=== PATIENT | male | born 1965 | race Caucasian/White ===

== ENCOUNTER 2020-04-07 08:45 | Inpatient (IN) | payer MEDICAID ==
[~2020-04-07] VITALS: Ht 193 cm; Wt 99.8 kg
[2020-04-07 09:40] LABS: BASOPHILS % 0.9 % (0.0-2.0); EOSINOPHILS % 1.6 % (0.0-5.0); HEMATOCRIT. 45.8 % (42.0-52.0); HEMOGLOBIN. 15.5 g/dL (14.0-18.0); LYMPHOCYTES % 33.7 % (20.0-50.0); MEAN CORPUSCULAR HEMOGLOBIN 32.3 pg (28.0-32.0); MEAN CORPUSCULAR VOLUME 95.2 fL (80.0-94.0); MEAN PLATELET VOLUME 7.8 fl (7.4-10.4); MONOCYTES % 8.4 % (2.0-8.0); NEUTROPHILS % 55.4 % (40.0-76.0); PLATELET 230 x1000/uL (130-400); RED BLOOD CELL COUNT 4.81 mill/uL (4.7-6.1); RED CELL DISTRIBUTION WIDTH 12.6 % (11.6-14.6)
[2020-04-07 09:45] LABS: CHLORIDE 107 mEq/L (98-107)
[2020-04-07] MEDS ORDERED: VANCOMYCIN HCL 1 GM/VIAL ONE (12:15)
[2020-04-07] MEDS ORDERED: BACITRACIN 50,000 UNITS/VIAL ONE (12:15)
[2020-04-07] MEDS ORDERED: BUPIVACAINE HCL/PF 0.25% (2.5MG/ML) 10ML ONE (12:15)
[2020-04-07] MEDS ORDERED: SODIUM CHLORIDE 0.9% INJ 10ML FLUSH IVF ONE (12:16)
[2020-04-07] MEDS ORDERED: MIDAZOLAM HCL 2 MG/2 ML VIAL ONE (15:30)
[2020-04-07] MEDS ORDERED: FENTANYL CITRATE/PF 50MCG/ML 2ML VIAL ONE (15:30)
[2020-04-07] MEDS ORDERED: PROPOFOL 200MG/20ML VIAL IV ONE (15:30)
[2020-04-07] MEDS ORDERED: CEFAZOLIN SODIUM 1000MG/VIAL ONE (16:05)
[2020-04-07] MEDS ORDERED: ONDANSETRON HCL 4MG/2ML INJ ONE (18:38)
[2020-04-07] MEDS ORDERED: METOCLOPRAMIDE HCL 10MG/2ML VIAL ONE (18:38)
[2020-04-07] MEDS ORDERED: DIPHENHYDRAMINE 50MG/ML VIAL IV PRN (19:45)
[2020-04-07] MEDS ORDERED: MEPERIDINE HCL/PF 25MG/ML CPJ IV PRN (19:45)
[2020-04-07] MEDS ORDERED: METOCLOPRAMIDE HCL 10MG/2ML VIAL IV NR (19:45)
[2020-04-07] MEDS ORDERED: ONDANSETRON HCL 4MG/2ML INJ IV PRN ×2 (19:45→20:15)
[2020-04-07] MEDS ORDERED: ZOLPIDEM TARTRATE 5MG TABLET PO PRN (20:15)
[2020-04-07] MEDS ORDERED: MORPHINE SULFATE 4 MG/ML CPJ (NOT FOR IM USE) IV PRN (20:15)
[2020-04-07] MEDS ORDERED: MORPHINE SULFATE 2 MG/ML CPJ (NOT FOR IM USE) IV PRN (20:15)
[2020-04-07] MEDS ORDERED: HYDROCODONE/ACETAMINOPHEN 10/325MG TABLET PO PRN ×2 (20:15)
[2020-04-07] MEDS ORDERED: ACETAMINOPHEN 325MG TABLET PO PRN (20:15)
[2020-04-07] MEDS: HYDROMORPHONE HCL/PF 2MG/ML CPJ IV PRN ×2 (20:27→21:54)
[2020-04-07] MEDS ORDERED: HYDROMORPHONE PCA 10MG/50ML IV PRN (20:45)
[2020-04-07] MEDS ORDERED: ONDANSETRON INJ IV PRN (20:45)
[2020-04-07] MEDS ORDERED: DIPHENHYDRAMINE INJ IV PRN (20:45)
[2020-04-07] MEDS ORDERED: NALOXONE INJ IV PRN (20:45)
[2020-04-07 23:13] VITALS: BP 108/72
[2020-04-08] VITALS: BP 108/72
[2020-04-08 04:00] VITALS: BP 130/75
[2020-04-08] MEDS ORDERED: ATOR10TA MT (04:21)
[2020-04-08 08:00] VITALS: BP 116/66
[2020-04-08] MEDS: KETOROLAC 30MG/ML VIAL IV PRN ×2 (08:54→15:35)
[2020-04-08 12:00] VITALS: BP 113/64
[2020-04-08 16:00] VITALS: BP 133/67
[2020-04-08 16:04] VITALS: BP 133/67
== END 2020-04-08 16:50 | disposition home or self-care (01) | DRG 316 ==
LOC: ER 08:45 → 6EST 12:36 → EDBEDREQ 12:42 → SUPCPDRO 15:25 → ENRESERV 20:11
PROVIDERS: ADMIT Orthopaedic Surgery; ATTEND Orthopaedic Surgery
PROC: 0PSP04Z Reposition Right Metacarpal with Internal Fixation Device, Open Approach (ICD-10-PCS; principal; 2020-04-07)
PROC: 0PST04Z Reposition Right Finger Phalanx with Internal Fixation Device, Open Approach (ICD-10-PCS; 2020-04-07)
DX: S62.322A Displaced fracture of shaft of third metacarpal bone, right hand, initial encounter for closed fracture (principal); S62.324A Displaced fracture of shaft of fourth metacarpal bone, right hand, initial encounter for closed fracture; S62.616A Displaced fracture of proximal phalanx of right little finger, initial encounter for closed fracture; X58.XXXA Exposure to other specified factors, initial encounter; Z60.2 Problems related to living alone; Z20.828 Contact with and (suspected) exposure to other viral communicable diseases; Y93.89 Activity, other specified; Y92.89 Other specified places as the place of occurrence of the external cause; Y99.8 Other external cause status; Z53.31 Laparoscopic surgical procedure converted to open procedure
CPT/HCPCS: 36415; 71045; 73130; 76000; 80053; 85025; 87426; 93005; 96374; 99285; A4565; J0690; J1170; J1885; J2175; J2250; J2405; J2704; J2765; J3010; J3370; J3490